=== PATIENT | female | born 1940 | race Caucasian/White ===

== ENCOUNTER 2016-11-27 14:45 | Emergency (ER) | payer MEDICARE, MEDICAID ==
[2016-11-27 15:22] LABS: ABSOLUTE NEUTROPHIL COUNT 12.5 K/mm3 (1.8-7.7); BASO % 0.2 % (0.2-1.0); EOS # 0.1 (0.0-0.5); EOS % 0.5 % (0.9-2.9); HEMATOCRIT 28.4 % (37.0-47.0); HEMOGLOBIN 8.6 gm/l (12.0-16.0); IMM NEUT # 0.2 K/mm3 (0-0.2); LYMPH # 1.1 (1.0-4.8); LYMPH % 7.5 % (15-45); MEAN CELL VOLUME 89.9 fl (81.0-99.0); MEAN CORPUSCULAR HEMOGLOBIN 27.2 pg (27.0-31.0); MEAN CORPUSCULAR HGB CONC 30.3 g/dl (33.0-37.0); MEAN PLATELET VOLUME 10.7 fl (7.4-10.4); MONO # 0.9 (0.0-0.8); MONO % 6.1 % (4-12); NEUT % 84.7 % (43-75); PLATELET COUNT 340 K/mm3 (130-400); RED CELL DISTRIBUTION WIDTH 14.6 % (11.5-14.5)
[2016-11-27 15:32] LABS: ALB/GLOB RATIO 1.1 (>1.0); ALBUMIN 3.7 gm/dL (3.5-5.7); CALCIUM 8.8 mg/dL (8.6-10.3)
--- NOTE | 2016-11-27 15:38 | RAD ---
CHEST-AP BEDSIDE COMPARISON: Chest 2 views, 11/27/2014 HISTORY: Shortness of breath in a patient with a history of heart failure. FINDINGS: Views: Frontal chest. Lungs: Low volume. Crowding and enlarged bronchovascular markings. Heart and vessels: Mild cardiomegaly. Atherosclerosis of the thoracic ureter. Trachea and bronchi: Normal Mediastinum and ulises: Normal Costophrenic sulci: Normal Chest wall and bones: Sternotomy wires. Upper abdomen: Normal. IMPRESSION: Pulmonary vascular congestion.
[2016-11-27] MEDS ORDERED: FUROSEMIDE 40 MG/4 ML VIAL ONE (16:15)
== END 2016-11-27 17:59 | disposition home or self-care (01) ==
LOC: ED 14:45
DX: I13.0 Hypertensive heart and chronic kidney disease with heart failure and stage 1 through stage 4 chronic kidney disease, or unspecified chronic kidney disease (principal); I50.9 Heart failure, unspecified; N18.3 Chronic kidney disease, stage 3 (moderate); Z66 Do not resuscitate
CPT/HCPCS: 83880; 85025; 80053; 84484; 71010; 99284 ×2; 96374; 93005; J1940

== ENCOUNTER 2016-11-28 16:11 | Inpatient (IN) | payer MEDICARE, MEDICAID ==
[2016-11-28] MEDS ORDERED: FUROSEMIDE 40 MG/4 ML VIAL ONE (17:21)
[2016-11-28 17:27] LABS: BASO % 0.2 % (0.2-1.0); EOS # 0.1 (0.0-0.5); HEMATOCRIT 27.1 % (37.0-47.0); HEMOGLOBIN 8.5 gm/l (12.0-16.0); IMM NEUT # 0.2 K/mm3 (0-0.2); IMM NEUT% 1.6 % (0-1); LYMPH # 1.3 (1.0-4.8); LYMPH % 9.6 % (15-45); MEAN CELL VOLUME 88.9 fl (81.0-99.0); MEAN CORPUSCULAR HEMOGLOBIN 27.9 pg (27.0-31.0); MEAN CORPUSCULAR HGB CONC 31.4 g/dl (33.0-37.0); MEAN PLATELET VOLUME 10.7 fl (7.4-10.4); MONO # 0.8 (0.0-0.8); MONO % 6.2 % (4-12); NEUT % 81.4 % (43-75); PLATELET COUNT 328 K/mm3 (130-400); RED CELL DISTRIBUTION WIDTH 14.6 % (11.5-14.5)
[2016-11-28 17:52] LABS: CALCIUM 8.9 mg/dL (8.6-10.3)
[2016-11-28] MEDS ORDERED: ONDANSETRON 4 MG ODT TAB PO PRN (18:28)
[2016-11-28] MEDS ORDERED: BLISTEX LIPSTICK 1 EACH TP PRN (18:28)
[2016-11-28] MEDS ORDERED: MAGNESIUM HYDROXIDE 30 ML UDCUP PO PRN (18:28)
[2016-11-28] MEDS ORDERED: BISACODYL 5 MG TABLET.EC PO PRN (18:28)
[2016-11-28] MEDS ORDERED: SODIUM CHLORIDE 0.9% 100 ML IV PRN (18:28)
[2016-11-28] MEDS ORDERED: POLYVINYL ALCOHOL 1.4% (TEARS) 300 GTTS/BOT SOLN.DROP OU PRN (18:28)
[2016-11-28] MEDS ORDERED: ACETAMINOPHEN 325 MG TABLET PO PRN ×2 (18:28)
[2016-11-28] MEDS ORDERED: ACETAMINOPHEN 650 MG SUP PR PRN (18:28)
[2016-11-28] MEDS ORDERED: BISACODYL 10 MG SUP PR PRN (18:28)
[2016-11-28] MEDS ORDERED: MENTHOL/CETYLPYRD 1 EACH LOZENGE PO PRN (18:28)
[2016-11-28] MEDS ORDERED: INSULIN ASPART (DOSE) 100 UNITS/1 ML SUB-Q PRN (19:07)
[2016-11-28 19:30] VITALS: BMI 36.8
[2016-11-28] MEDS: MORPHINE SULF Oral Liquid 20 MG/1 ML DOSE PO PRN ×2 (19:31→22:46)
[2016-11-28] MEDS: ACETAZOLAMIDE 250 MG TABLET PO SCH (19:44)
[2016-11-28] MEDS: DOCUSATE SODIUM 100 MG CAPSULE PO SCH ×2 (19:46→21:34)
[2016-11-28] MEDS ORDERED: INSULIN GLARGINE (DOSE) 100 UNITS/ML UNIT SUB-Q SCH (20:00)
[2016-11-28] MEDS: CARVEDILOL 6.25 MG TABLET PO SCH (21:58)
[2016-11-28] MEDS: AMLODIPINE BESYLATE 5 MG TABLET PO SCH (21:58)
[2016-11-28] MEDS: QUETIAPINE FUMARATE 50 MG TABLET PO SCH (21:58)
[2016-11-28] MEDS: CLOTRIMAZOLE 1% VG SCH (22:10)
--- NOTE | 2016-11-29 06:36 | HP ---
ARCHANA BARILLAS [id number] DATE OF ADMISSION: November 28, 2016 CHIEF COMPLAINT: Shortness of breath. HISTORY OF PRESENT ILLNESS: The patient is a 76-year-old female with senile dementia, diabetes and coronary artery disease as well as pulmonary hypertension due to mitral regurgitation who was brought to the [facility] Emergency Department because of worsening shortness of breath symptoms. Her symptoms became acutely worse today approximately two hours prior to arrival, but she has been having increasing dyspnea for at least the past week. Her daughter has been looking into transitioning over to Hospice care but has not been able to make those arrangements, and the staff at her care facility have not been able to make the patient comfortable. In the emergency department, the patient is unable to give any meaningful history or review of systems. REVIEW OF SYSTEMS: Is not obtainable. PAST MEDICAL HISTORY: Is significant for: 1. Multivessel coronary artery disease. She is followed by [facility]. Echocardiogram has shown severe biatrial enlargement, elevated pulmonary artery pressures, severe tricuspid regurgitation, and moderate to severe mitral regurgitation. The patient recently had an echocardiogram done in the past month but the results are not available. There has been no history of any angina. 2. Patient has a history of adult onset diabetes since the age of 48 controlled with oral medications. Her diabetes has been complicated by chronic stage 4 kidney disease, retinopathy and nephropathy as well as neuropathy. 3. She has had obesity in the morbid range but is now down into the non-morbid obese range. 4. She has had some hypothyroidism. 5. Gastroesophageal reflux disease. 6. History of hyperlipidemia as well. PAST SURGICAL HISTORY: Significant for: 1. A two vessel coronary artery bypass graft done in February of 2011. 2. She had a stent placed in the proximal circumflex in April of 2010. 3. She had a four vessel bypass graft in April of 2004. 4. She has had multiple cardiac catheterizations. I believe the last was in November of 2010. 5. She had a screening colonoscopy in July of 2008. 6. Hysterectomy at the age of 34. 7. She has had cataract surgery in the left eye in 2004. 8. She had urethral dilatation sometime in the past for a stricture. ALLERGIES: She has multiple drug allergies includin. SHELLFISH. 2. IODINE. 3. LIPITOR. 4. SULFA. 5. PENICILLIN. 6. ABY INHIBITORS. 7. STATINS. CURRENT MEDICATIONS: Consist of: 1. Lasix 80 mg orally twice daily. 2. Tessalon Perles 100 mg three times daily. 3. Prilosec 20 mg daily. 4. Lotrimin vaginal cream 1% applied vaginally twice daily. 5. Norvasc 5 mg twice daily. 6. Seroquel 100 mg twice daily. 7. Levothroid 50 mcg daily. 8. Glipizide ER 2.5 mg daily. 9. Coreg 12.5 mg twice daily. 10. Tylenol 1000 mg twice daily. 11. Flexeril 5 mg twice daily. FAMILY HISTORY: Significant for three brothers who of heart disease in their 60s. Her mother had a myocardial infarction at the age of 66. She has a sister with diabetes. SOCIAL HISTORY: She is currently living in a memory care unit. I believe she is still . She has two grown daughters. There is no history of alcohol, tobacco or illicit drug use. Primary care provider is Arvin Frausto A POLST form indicates comfort care measures. PHYSICAL EXAMINATION: VITAL SIGNS: Temperature is 97.8, pulse 76, blood pressure 155/66, respirations 40, oxygen saturation 95% on room air. Body mass index is 36.8. Weight is 79.8 kilograms. GENERAL: This is an obese, elderly female in moderate respiratory distress. HEENT: Exam is unremarkable. NECK: Is supple without lymphadenopathy or thyromegaly. CHEST: Reveal bibasilar crackles. CARDIOVASCULAR: Exam reveals a regular rate and rhythm without a 2/6 systolic murmur. ABDOMEN: Obese, soft, nontender, nondistended with positive bowel sounds. EXTREMITIES: Show trace to 1+ pitting edema. SKIN: Warm, dry and intact. NEUROLOGIC: Exam is nonfocal. DIAGNOSTIC IMAGING STUDIES: Chest x-ray performed yesterday shows pulmonary vascular congestion. LABORATORY STUDIES: CBC shows a white count of 13.5, hemoglobin of 8.5, platelet count of 328,000. Chemistry profile shows sodium 137, potassium 3.7, BUN 68, creatinine 2.4, glucose 350. ASSESSMENT: 1. Patient has pulmonary edema with worsening dyspnea associated with severe mitral and tricuspid regurgitation with pulmonary hypertension. 2. She has advanced multivessel coronary artery disease as well. Her last ejection fraction was above 50%. 3. She has diabetes complicated by nephropathy, neuropathy and retinopathy with chronic stage 4 kidney disease. 4. She also has senile dementia. PLAN: 1. She is admitted for diuresis, oxygen, and comfort care. 2. We will work to assist the family in enrollment in Hospice and placement as appropriate. 3. Venous thromboembolism risk is moderate and mechanical measures are being used for prophylaxis. 4. She will be given sliding scale NovoLog. 5. She will need to go off of the glipizide and probably transition over to some type of long-acting insulin because of her renal failure. 6. Further treatment and recommendations will depend on her hospital course. 7. Code status is COMFORT CARE. cc: Arvin Frausto
[2016-11-29] MEDS ORDERED: LEVOTHYROXINE SODIUM 50 MCG TABLET PO SCH (07:30)
[2016-11-29] MEDS ORDERED: OMEPRAZOLE 20 MG CAPSULE.DR PO SCH (09:00)
[2016-11-29] MEDS ORDERED: PANTOPRAZOLE 40 MG TABLET DR PO SCH (09:00)
[2016-11-29] MEDS: FUROSEMIDE 100 MG/10 ML VIAL IV SCH ×2 (09:56→15:19)
[2016-11-29] MEDS: CLOTRIMAZOLE 1% VG SCH (10:00)
[2016-11-29] MEDS: CARVEDILOL 6.25 MG TABLET PO SCH (10:04)
[2016-11-29] MEDS: DOCUSATE SODIUM 100 MG CAPSULE PO SCH (10:09)
[2016-11-29] MEDS: AMLODIPINE BESYLATE 5 MG TABLET PO SCH (10:12)
[2016-11-29] MEDS: ACETAZOLAMIDE 250 MG TABLET PO SCH (10:25)
[2016-11-29] MEDS: QUETIAPINE FUMARATE 50 MG TABLET PO SCH (10:25)
[2016-11-29] MEDS ORDERED: DEXTROSE 50%-WATER 25 G ONE (11:32)
[2016-11-29] MEDS ORDERED: DEXTROSE 50%-WATER 25 G SYRINGE IV ONE (11:34)
--- NOTE | 2016-11-29 13:16 | PDOC43 ---
- Subjective Chief Complaint: dyspnea sleeping, does not rouse during my exam - Objective Vital Signs Temperature 98.5 F 11/29/16 07:24 Pulse Rate 65 11/29/16 09:52 Respiratory Rate 22 11/29/16 07:32 Blood Pressure 150/66 11/29/16 09:52 O2 Saturation by Pulse Oximetry 94 11/29/16 09:52 Oxygen Delivery Method Room Air Oxygen Flow Rate 0 Intake and Output 11/28/16 11/29/16 11/30/16 06:59 06:59 06:59 Intake Total 800 Output Total 725 Balance 75 General: No Acute Distress HEENT: Mucous membr. moist/pink Lungs: Other (bilateral ronchi) Cardiovascular: Regular Rate and Rhythm Abdomen: Soft, Normal Bowel Sounds Extremities: Pulses Diminished but Palpable, No Edema Skin: Normal Color 11/29/16 11/29/16 11/28/16 11:45 11:24 22:00 POC Capillary Glucose 152 H 57 L 295 H 11/28/16 18:35 POC Capillary Glucose 324 H Current Medications: Current meds reviewed in EMR. - Problems: Assessment/Plan (1) Pulmonary edema Qualifiers: Chronicity: acute Qualifier Code: (J81.0) Acute pulmonary edema Status: AcuteAssessment/Plan: Due to severe valvular heart disease and pulmonary HTN, causing severe dyspnea Controlled with diuresis and morphine for air hunger. 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 transplanted heart: [place] heart Associated angina: without angina Qualifier Code: (I25.10) Atherosclerotic heart disease of [place] coronary artery without angina pectoris Status: ChronicAssessment/Plan: s/p two previous CABG procedures, contributing to terminal prognosis (4) DM2 (diabetes mellitus, type 2) Qualifiers: Diabetes mellitus complication status: with kidney complications Diabetes mellitus complication detail: with chronic kidney disease Chronic kidney disease stage: stage 4 (severe) Status: ChronicAssessment/Plan: BG low this a.m. due to lack of oral intake. D/C DM meds and D/C BG checks. (5) CKD (chronic kidney disease) stage 4, GFR 15-29 ml/min Status: ChronicAssessment/Plan: Creatinine worse with diuresis (6) Dementia Qualifiers: Dementia behavioral disturbance: without behavioral disturbance Status: ChronicAssessment/Plan: contributes to inability to have surgical repair. VTE Prophylaxis: not indicated with comfort care Disposition: Discharge to [facility].
[2016-11-29 15:03] VITALS: BP 141/73
== END 2016-11-29 19:30 | DRG 189 ==
LOC: ED 16:11 → MS 17:30
PROVIDERS: ADMIT Family Medicine; ATTEND Family Medicine
DX: J81.1 Chronic pulmonary edema (principal); N18.4 Chronic kidney disease, stage 4 (severe); I13.0 Hypertensive heart and chronic kidney disease with heart failure and stage 1 through stage 4 chronic kidney disease, or unspecified chronic kidney disease; I25.10 Atherosclerotic heart disease of native coronary artery without angina pectoris; E11.22 Type 2 diabetes mellitus with diabetic chronic kidney disease; F03.90 Unspecified dementia, unspecified severity, without behavioral disturbance, psychotic disturbance, mood disturbance, and anxiety; I34.0 Nonrheumatic mitral (valve) insufficiency; I07.1 Rheumatic tricuspid insufficiency; E11.21 Type 2 diabetes mellitus with diabetic nephropathy; E11.40 Type 2 diabetes mellitus with diabetic neuropathy, unspecified; E11.319 Type 2 diabetes mellitus with unspecified diabetic retinopathy without macular edema; Z79.84 Long term (current) use of oral hypoglycemic drugs; Z51.5 Encounter for palliative care; I50.9 Heart failure, unspecified; Z66 Do not resuscitate